=== PATIENT | male | born 1985 | race Caucasian/White ===

== ENCOUNTER 2017-08-09 07:10 | Emergency (ER) | payer MEDICAID, SELFPAY ==
[2017-08-09 07:11] VITALS: BP 135/67; PULSE 80; RESP 18; TEMP 36.4; O2SAT 99; BMI 25.0
--- NOTE | 2017-08-09 07:36 | CT_ITS ---
STUDY: CT BRAIN WITHOUT CONTRAST REASON FOR EXAM: Male, 32 years old. Confusion. RADIATION DOSAGE (If Supplied By Facility): CTDIvol = ( 44.99 ) mGy, DLP = ( 796.11 ) mGycm TECHNIQUE: Transaxial CT imaging of the brain was performed without administration of intravenous contrast material. Individualized dose optimization techniques were used for this CT. COMPARISON: Comparison is made with prior study dated September 18, 2004. FINDINGS: Normal soft tissue structures. Normal calvarium. Normal size ventricles and extra-axial spaces for the patient's age. Normal white matter tracts of the cerebral hemispheres. Normal basal ganglia and thalami. Normal brainstem. Normal cerebellum. There is no intracranial hemorrhage. There are no findings of an acute ischemic infarction. Normal visualized paranasal sinuses. Nasal septal deviation towards the left side of the midline. CT/Brain/Head without Contrast IMPRESSION: Normal unenhanced CT scan of the brain. Electronically Signed: Joseph Hubbard MD at 8:38 EDT Tel [phone], Service support ,
[2017-08-09 08:02] LABS: Absolute Neutrophil Count 5.8 X10^3/uL (2.0-7.7); Basophil# 0.04 X10^3/uL; Basophil% 0.4 % (0-1); Eosinophil# 0.49 X10^3/uL; Eosinophils% 5.4 % (0-5); Hemoglobin 14.1 g/dl (13.0-16.5); Lymphocyte % 21.9 % (19-41); Mean Corp Hgb Conc 35.3 g/gl (32-36); Mean Corpuscular Hgb 31.8 pg (27.0-32.0); Mean Corpuscular Volume 90.3 fL (80-94); Mean Platelet Vol. 9.6 fl (6.2-12.0); Monocyte# 0.84 X10^3/uL; Monocyte% 9.2 % (0-10); Neutrophil # 5.76 X10^3/uL (2.7-7.7); Neutrophil % 62.9 % (47-70); POSITIVE COUNT NO; POSITIVE DIFFERENTIAL NO; POSITIVE MORPHOLOGY NO; Platelet Count 252 K/mm3 (150-450); RBC Distribution Width CV 12.8 % (11.6-14.6); RBC Distribution Width SD 41.8 fl (35.1-43.9); Red Blood Count 4.43 M/mm3 (4.6-6.2); White Blood Count 9.2 K/mm3 (4.4-11.0)
--- OUTSIDE RECORDS SUMMARY | 2017-08-09 08:13 | XMS RPT_ITS ---
:1985 Author Organization OHIP Care Team Providers Name Role Phone DR. ITA DURANT DO Attending Unavailable PHYSICIAN, NONE Primary Care Unavailable BEA PUGH) Attending Unavailable BEA PUGH) Referring Unavailable BEA PUGH) Attending Unavailable Clint Wagner Attending Unavailable Vamsi Pinto Primary Care Unavailable PROBLEMS PROBLEMS DATE TYPE CONDITION / CODE ATTENDING STATUS SOURCE 09/15/2016 Active Attention-deficit NA Active [facility] [place] disorder, combined Repository type / F90.2(ICD-10) PROCEDURES PROCEDURES No Procedure Records FoundRESULTS RESULTS CBC W/DIFF, AUTOMATED Collected: 08/09/2017 Status: F Source: [place] 7:52 AM [facility] REPOSITORY TYPE CODE TESTS RESULT OUT OF RANGE REFERENCE UNITS LAB L100.1000 Normal 4.4-11.0 K/mm3 WBC 9.2 LAB L100.1200 Low 4.6-6.2 M/mm3 RBC 4.43 LAB L100.1300 Normal 13.0-16.5 g/dl HGB 14.1 LAB L100.1400 Normal 40-54 % HCT 40.0 LAB L100.1500 Normal 80-94 fL MCV 90.3 LAB L100.1600 Normal 27.0-32.0 pg MCH 31.8 LAB L100.1700 Normal 32-36 g/gl MCHC 35.3 LAB L100.1810 Normal 11.6-14.6 % RDW 12.8 CV LAB L100.1820 Normal 35.1-43.9 fl RDW 41.8 SD LAB L100.1900 Normal 150-450 K/mm3 PLT 252 LAB L100.2000 Normal 6.2-12.0 fl MPV 9.6 LAB L100.2100 Normal 47-70 % NEUT% 62.9 LAB L100.2200 Normal 19-41 % LY% 21.9 LAB L100.2300 Normal 0-10 % MONO% 9.2 LAB L100.2400 High 0-5 % EO% 5.4 LAB L100.2500 Normal 0-1 % BASO% 0.4 LAB L100.2550 Normal 0.0-0.9 % IM 0.200 GRAN % Result Comment: IG% - Immature Granulocytes (promyelocytes, myelocytes andmetamyelocytes) > 1% indicates that a LEFT SHIFT is Present. LAB L100.2620 Normal 2.0-7.7 X10 3/uL Absolute Neut 5.8 LAB L100.2720 Normal 0.83-4.51 X10 3/ul Absolute Lymph 2.00 Performed By: #### L100.0100 ####[facility] [id number] [place], [place], [address] PROGRESS Observed: 06/02/2017 Status: COMPLETED Source: [place] 4:57 PM [facility] REPOSITORY HNO ID: [id number]: Bea Messer) Aroldo : (none)Author Type: PhysicianType: Progress NotesFiled: 06/03/2017 7:40 AMNote Text:Chief ComplaintPatient presents with:Refill Request: depressionRodney Mckeon is a 31 year old male who presents here today for AboveComplaints..Patient states that he has been off of his Zoloft for the last few monthsbecause he ran out of refills. States that he was taking it after lastvisit in August and felt that it worked well for his depression symptomswithout side effects. Since he has been off of the medication: feelsdown/depressed, decreased energy/interest, decreased concentration,feeling guilty. Has normal appetite, normal sleep. Denies psychomotorsymptoms or suicidal thoughts. Would like refill of his Zoloft.Patient currently homeless and is living at the [facility] here [facility]. [place] [employer] [facility] [place] the [place] free to get [facility].Admits to continued marijuana use, but denies other illicit drug use. Saysprevious oxycodone is likely due to marijuana use that was laced with thedrug.Past medical history, appointments, medications, allergies reviewed.Previous Medical HistoryPAST MEDICAL HISTORYDiagnosis Date- ADHD (attention deficit hyperactivity disorder) 1989- Drug abuse oxycodone found on urine drug screen 09/2016- History of alcoholism (HCC) 2011 DUI, sober since 2012- Marijuana use- Tobacco usePrevious Surgical HistoryPAST SURGICAL HISTORYProcedure Laterality Date- ORAL SURGERY PROCEDURE wisdom teeth extractionFamily HistoryFAMILY HISTORYProblem Relation Age of Onset- Psychiatry Mother ADHD- Peripheral Artery Disease Mother- Breast Cancer Maternal AuntPatient AllergiesALLERGIESAllergen Reactions- Cats Other: See Comments Itchy eyes AND hives if touching catCurrent MedicationsCurrent Outpatient Prescriptions on File Prior to Visit:multivitamin tablet Take 1 tablet by mouth once daily.sertraline (ZOLOFT) 50 mg tablet Take 1 tablet by mouth once daily.No current facility-administered medications on file prior to visit.Social HistorySocial History Marital status: Single Spouse name: Years of education: Number of children:Social History Main Topics Smoking status: Current Every Day Smoker Packs/day: 1.00 Years: 15.00 Smokeless status: Former User Types: Chew Quit date: 09/15/2014 Alcohol use: No Drug use: Yes Special: Marijuana Comment: Last use May 2016 Sexual activity: Not CurrentlyReview of SymptomsREVIEW OF SYSTEMSe HPIEXAM:BP 148/96 Pulse 84 Resp 12 Wt 93.4 kg (206 lb) BMI 26.81 kg/l7DQNHC: Posture and motor behavior: normal posture and motor behavior Dress, grooming, personal hygiene: normal dress and grooming Facial expression: good eye contact Speech: normal speech Mood: sad Coherency and relevance of thought: normal thought processes Memory: normal memoryHealth Maintenance ListTETANUS due on 07/23/1994INFLUENZA(Season Ended) due on 10/21/2017ONE PNEUMOVAX PRIOR TO AGE 63 CompletedASSESSMENT/PLAN:1. Moderate episode of recurrent major depressive disorder (HCC) - ICD9:296.32, ICD10: F33.1Will restart SSRI and have patient follow up in 2-3 months. To call ifsymptoms not improving on low dose in 4-6 weeks and will increase.- SERTRALINE 50 MG TABLET2. Marijuana use - ICD9: 305.20, ICD10: F12.90Discussed risks of continued use and recommended cessation.Bea Pugh MD CNOV Observed: 06/02/2017 Status: COMPLETED Source: [place] 4:20 PM [facility] REPOSITORY Office Visit (FAMPWS) ---------RIKI MCKEON ([id number]) 1985 [facility] Time Provider Department06/02/17 4:20 PM BEA PUGH) FAMPWS During your visit today, we recorded the following information about you: Pulse Respiration Blood pressure Weight 84/minute 12/minute 138/88 93.4 kgChristopher Lashanda Pugh MD 06/03/2017 7:40 AM SignedChief ComplaintPatient presents with:Refill Request : depressionHPIJselwynua Lashell Mckeon is a 31 year old male who presents here today for AboveComplaints..Patient states that he has been off of his Zoloft for the last few monthsbecause he ran out of refills. States that he was taking it after last visit inJuly and felt that it worked well for his depression symptoms without sideeffects. Since he has been off of the medication: feels down/depressed, decreased energy/interest, decreased concentration, feeling guilty. Has normalappetite, normal sleep. Denies psychomotor symptoms or suicidal thoughts. Wouldlike refill of his Zoloft.Patient currently homeless and is living at the [facility] here in [place] [facility] [place] to [place] to appointments.Admits to continued marijuana use, but denies other illicit drug use. Saysprevious oxycodone is likely due to marijuana use that was laced with the drug.Past medical history, appointments, medications, allergies reviewed.Previous Medical HistoryPAST MEDICAL HISTORYDiagnosis Date- ADHD (attention deficit hyperactivity disorder) 1989- Drug abuse oxycodone found on urine drug screen 09/2016- History of alcoholism (HCC) 2011 DUI, sober since 2012- Marijuana use- Tobacco usePrevious Surgical HistoryPAST SURGICAL HISTORYProcedure Laterality Date- ORAL SURGERY PROCEDURE wisdom teeth extractionFamily HistoryFAMILY HISTORYProblem Relation Age of Onset- Psychiatry Mother ADHD- Peripheral Artery Disease Mother- Breast Cancer Maternal AuntPatient AllergiesALLERGIESAllergen Reactions- Cats Other: See Comments Itchy eyes ANDamp; hives if touching catCurrent MedicationsCurrent Outpatient Prescriptions on File Prior to Visit: multivitamin tablet Take 1 tablet by mouth once daily.sertraline (ZOLOFT) 50 mg tablet Take 1 tablet by mouth once daily.No current facility-administered medications on file prior to visit.Social HistorySocial History Marital status: Single Spouse name: Years of education: Number of children:Social History Main Topics Smoking status: Current Every Day Smoker Packs/day: 1.00 Years: 15.00 Smokeless status: Former User Types: Chew Quit date: 09/15/2014 Alcohol use: No Drug use: Yes Special: Marijuana Comment: Last use May 2016 Sexual activity: Not CurrentlyReview of SymptomsREVIEW OF SYSTEMSSee HPIEXAM:BP 148/96 Pulse 84 Resp 12 Wt 93.4 kg (206 lb) BMI 26.81 kg/a9GPHZR: Posture and motor behavior: normal posture and motor behavior Dress, grooming, personal hygiene: normal dress and grooming Facial expression: good eye contact Speech: normal speech Mood: sad Coherency and relevance of thought: normal thought processes Memory: normal memoryHealth Maintenance ListTETANUS due on 07/23/1994INFLUENZA(Season Ended) due on 10/21/2017ONE PNEUMOVAX PRIOR TO AGE 63 CompletedASSESSMENT/PLAN:1. Moderate episode of recurrent major depressive disorder (HCC) - ICD9:296.32, ICD10: F33.1Will restart SSRI and have patient follow up in 2-3 months. To call if symptomsnot improving on low dose in 4-6 weeks and will increase.- SERTRALINE 50 MG TABLET2. Marijuana use - ICD9: 305.20, ICD10: F12.90Discussed risks of continued use and recommended cessation.Janna Denny Provider: SELF [200]Allergies As of Date: 06/02/2017 Noted Allergy ReactionCATS 03/04/2013 14 - Other: See Comments Comments: Itchy eyes AND hives if touching catDate Reviewed: 2016Reviewed by: Bea Messer) Jaquelin - Fully AssessedReason for Visit: Refill Request [94] Cmt: depressionVisit Diagnoses:Moderate episode of recurrent major depressive disorder (HCC) [F33.1] Marijuana use [F12.90]Order(s):sertraline (ZOLOFT) 50 mg tabletTake 1 tablet by mouth once daily.Disp: 30 tabletRfl: 3Prescriptions as of 06/02/2017 Sig: FLAXSEED OIL MULTIVITAMIN TABLET Take 1 tablet by mouth once d* SERTRALINE 50 MG TABLET Take 1 tablet by mouth once d*Problem List As Of Date: 06/02/2017(None)Prescriptions ordered this encounter Disp Refills Start End SERTRALINE 50 MG TABLET 30 t* 3 06/02/2017 Route: ORAL Sig: Take 1 tablet by mouth once daily.Medications Discontinued During This Encounter sertraline (ZOLOFT) 50 mg tablet 30 t* 3 09/15/2016 06/02/2017 Route: ORAL Sig: Take 1 tablet by mouth once daily. Disc: Reason for discontinue is not on file.Disposition: Return in about 3 months (around 09/01/2017).Follow-up and Disposition History Recorded ---------Questionnaire: RA-7 ANXIETY SCALEFeeling nervous, anxious, or on edge -> 2 Over half the daysNot being able to stop or control worrying -> 2 Over half the daysWorrying too much about different things -> 2 Over half the daysTrouble relaxing -> 3 Nearly every dayBeing so restless that it's hard to sit still -> 0 Not at all sureBeing easily annoyed or irritable -> 2 Over half the daysFeeling afraid as if something awful might happen -> 0 Not at all sureGAD-7 Anxiety Score -> 11If you checked off any problems, how difficult have these problems made it foryou to do your work, take care of things at home, or get along with otherpeople? -> Somewhat difficultEncounter Number: [id number] Status:Closed by BEA PUGH MD on 06/03/17 TOXICOLOGY SCREEN,UR Collected: 09/15/2016 Status: F Source: [place] 9:39 AM [facility] REPOSITORY TYPE CODE TESTS RESULT OUT OF REFERENCE UNITS RANGE LAB UPCP2 Negative Negative Phencyclidin e, Urine Result Comment: Cutoff threshold at 25 ng/mL.Cross reactivity with other substances can occur with immunoassay screening. In house validation testing showed 80% of preliminary positive samples were confirmed by mass spectrometry (high specificity, quantitative) testing. Greater than 99% of negative screen results were confirmed by mass spectrometry (high specificity, quantitative) testing. LAB UBENZ2 Negative Benzodiazepines, Ur Negative Result Comment: Cutoff threshold at 200 ng/mL.Cross reactivity with other substances can occur with immunoassay screening. In house validation testing showed 90% of preliminary positive samples were confirmed by mass spectrometry (high specificity, quantitative) testing. 80% of negative screen results were confirmed by mass spectrometry (high specificity, quantitative) testing. LAB UCOC2 Negative Cocaine, Negative Urine Result Comment: Cutoff threshold at 300 ng/mL.Cross reactivity with other substances can occur with immunoassay screening. In house validation testing showed greater than 99% of preliminary positive samples were confirmed by mass spectrometry (high specificity, quantitative) testing. Greater than 99% of negative screen results were confirmed by mass spectrometry (high specificity, quantitative) testing. LAB UAMPH2 Negative Amphetamines, Urine Negative Result Comment: Cutoff threshold at 1000 ng/mL.Cross reactivity with other substances can occur with immunoassay screening. In house validation testing showed 70% of preliminary positive samples were confirmed by mass spectrometry (high specificity, quantitative) testing. Greater than 99% of negative screen results were confirmed by mass spectrometry (high specificity, quantitative) testing. LAB UTHC2 Negative Cannabinoids, Urine Negative Result Comment: Cutoff threshold at 50 ng/mL.Cross reactivity with other substances can occur wtih immunoassay screening. In house validation testing showed 80% of preliminary positive samples were confirmed by mass spectrometry (high specificity, quantitative) testing. Greater than 99% of negative screen results were confirmed by mass spectrometry (high specificity, quantitative) testing. LAB UOPI2 Negative Opiates, Negative Urine Result Comment: Cutoff threshold at 300 ng/mL.Cross reactivity with other substances can occur wtih immunoassay screening. In house validation testing showed greater than 99% of preliminary positive samples were confirmed by mass spectrometry (high specificity, quantitative) testing. 90% of negative screen results were confirmed by mass spectrometry (high specificity, quantitative) testing. LAB UBARB2 Negative Barbiturates, Urine Negative Result Comment: Cutoff threshold at 200 ng/mL.Cross reactivity with other substances can occur with immunoassay screening. In house validation testing showed greater than 99% of preliminary positive samples were confirmed by mass spectrometry (high specificity, quantitative) testing. Greater than 99% of negative screen results were confirmed by mass spectrometry (high specificity, quantitative) testing. LAB UETOH <11 mg/dL <11 Ethanol, Urine LAB UOXYC Abnormal Negative Preliminary Alert Oxycodone, positive. Urine Result Comment: Cutoff threshold at 100 ng/mL.Cross reactivity with other substances can occur with immunoassay screening. In house validation testing showed greater than 99% of preliminary positive samples were confirmed by mass spectrometry (high specificity, quantitative) testing. Greater than 99% of negative screen results were confirmed by mass spectrometry (high specificity, quantitative) testing.Comment:Immunoassay screen only. Detection of any drug(s ) in this urine toxicology panel is presumptive only. Intended use is for evaluation of suspected acute overdose. These tests are for medical purposes only and should not be used for compliance monitoring, legal, or forensic use.If clinically indicated, confirmation by high specificity, quantitative methodology may be requested on the same specimen through Client Services ([phone]) if contacted within 48 hours of initial testing.These tests were developed and their performance characteristics determined by [facility]'s [facility] ( [facility]). They have not been cleared or approved by the FDA. [facility] is regulated under CLIA as qualified to perform high complexity testing.These tests are used for clinical purposes. They should not be regarded as investigational or for research. Performed By: #### UTOX2 ####[facility], [place] [phone] QUANT PAIN PANEL, Collected: 09/15/2016 Status: F Source: [place] UR 9:[address] [facility] REPOSITORY TYPE CODE TESTS RESULT OUT OF REFERENCE UNITS RANGE LAB UQCANN High <16 ng/mL 23 Cannabinoid, Urine Result Comment: Tetrahydrocannabinol carboxylic acid (THCA ) is a metabolite of vjehq-8-wcdttfcxvmiqiqqkvypx which is the main active component of marijuana. Presence of THCA indicates use of marijuana. LAB UQBNZL <24 ng/mL Benzoylecognine, Ur <24 Result Comment: Benzoylecognine is a metabolite of cocaine. LAB UQACMR <5 ng/mL 6-Acetylmorphine, Ur <5 Result Comment: 6-MACARENA (6-monoacetylmorphine, also known as 6-acetylmorphine) is a unique metabolite of heroin. Presence of 6-MACARENA indicates use of heroin. 6-MACARENA is further metabolized to morphine and absence of 6-MACARENA does not rule out the use of heroin. LAB UQAMPH <5 ng/mL Amphetamine, Urine <5 LAB UQMAMP <8 ng/mL Methamphetamine, Ur <8 LAB UQBUPR <20 ng/mL Buprenorphine, Ur <20 LAB UQNBUP <20 ng/mL Norbuprenorphine, Ur <20 Result Comment: Norbuprenorphine is the primary active metabolite of buprenorphine. LAB UQMTHD <16 ng/mL Methadone, <16 Urine LAB UQEDDP <6 ng/mL EDDP, Urine <6 Result Comment: EDDP is a metabolite of methadone. LAB UQTRAM <25 ng/mL Tramadol, <25 Urine LAB UQDTRM <20 ng/mL <20 Desmethyltramado l,Ur Result Comment: Desmethyltramadol is a metabolite of tramadol. LAB UQFNTL <6 ng/mL Fentanyl, Urine <6 LAB UQNFTL <6 ng/mL Norfentanyl, <6 Urine Result Comment: Norfentanyl is a metabolite of fentanyl. LAB UQCODE <11 ng/mL Codeine, <11 Urine LAB UQMORP <10 ng/mL Morphine, <10 Urine Result Comment: Morphine is a metabolite of codeine and heroin. LAB UQDCDN <5 ng/mL Dihydrocodeine, Ur <5 LAB UQHCOD <8 ng/mL Hydrocodone, Urine <8 Result Comment: Hydrocodone is a metabolite of dihydrocodeine. LAB UQOXYC High <5 ng/mL Oxycodone, Urine 1015 Result Comment: Oxycodone is not a recognized metabolite of other opiates and its presence indicates use of an oxycodone containing drug. Oxycodone is metabolized to oxymorphone. LAB UQHMOR <5 ng/mL Hydromorphone, Ur <5 Result Comment: Hydromorphone is a metabolite of hydrocodone. LAB UQOXYM High <5 ng/mL Oxymorphone, Urine 635 Result Comment: Oxymorphone may arise from oxymorphone containing drugs or by metabolism os oxycodone. LAB UQCREA >19 mg/dL Creatinine, >50 Urine LAB UQPH 4-10 pH, Urine 4-10 LAB UQSPGR 1.005-1.020 Specific 1.005-1.020 Alpine,Ur LAB UQOXID Negative Oxidants, Urine Negative LAB UQSPQ Specimen Specimen Quality quality results within acceptable limits. LAB UQNOTE Note This test is for Medical use only. Result Comment: This test was developed and its performance characteristics determined by [facility]'s [facility] [place] ([facility]).It has not been cleared or approved by the FDA. -[facility] is regulated under CLIA as qualified to perform high-complexity testing.This test is used for clinical purposes. It should not be regarded as investigational or for research. Performed By: #### UQNTPP ####[place] [id number], [place] [phone] PROGRESS Observed: 09/15/2016 Status: COMPLETED Source: [place] 8:[address] [facility] [place] REPOSITORY [facility] ID: [id number]: Bea Messer) Aroldo : (none)Author Type: PhysicianType: Progress NotesFiled: 09/15/2016 9:38 AMNote Text:Chief ComplaintPatient presents with:Paxton Kckurt Mckeon is a 31 year old male who presents here today [facility]. 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 Finally came in because he is tired of feeling down/depressed.Has had trouble holding down a job. Denies history of suicide attempt. Hasbeen treated when he was a teenager with counseling, but no SSRI or SNRImedications. Not seeing counselor at this time.Attributes his depression symptoms to his ADHD. States that he has noimpulse control, trouble paying attention when spoken to, troublesleeping, fidgeting, trouble concentration, trouble with organization,forgetfulness. Has been on ritalin in the past, 20mg daily. Has not beenon medication in the last 20 years. Feels like he has lost ability to holddown a job and with depression symptoms above he felt like he needed somehelp.Patient Health Questionnaire (PHQ-9), interviewer reported, Score: 13? ?- Individual responses : 3-8-3-3-0-0-1-3-0? Question and Answer List:? 1. More than half the days (2) ?- Little interest or pleasure in doingthings? 2. More than half the days (2) ?- Feeling down, depressed, or hopeless? 3. More than half the days (2) ?- Trouble falling or staying asleep, orsleeping too much? 4. Nearly every day (3) ?- Feeling tired or having little energy? 5. Not at all (0) ?- Poor appetite or overeating? 6. Not at all (0) ?- Feeling bad about yourself - or that you are afailure or have let yourself or your family down? 7. Several days (1) ?- Trouble concentrating on things, such as readingthe newspaper or watching television? 8. Nearly every day (3) ?- Moving or speaking so slowly that otherpeople could have noticed. Or the opposite - being so fidgety or restlessthat you have been moving around a lot more than usual? 9. Not at all (0) ?- Thoughts that you would be better off , or ofhurting yourself in some way? 10. Very difficult (0) ?- If you checked off any problems in theprevious 9 questions, how difficult have these problems made it for you todo your work, take care of things at home, or get along with other people?Patient admits to history of alcoholism with DUI. Sober for 4 years.Smokes 1/2-1 pack of cigarettes per day and does not want help withcessation at this time. Has history of marijuana use, but states has been3 months since last use.Past medical history, appointments, medications, allergies reviewed.Previous Medical HistoryPAST MEDICAL HISTORYDiagnosis Date- ADHD (attention deficit hyperactivity disorder) 1989- History of alcoholism (HCC) 2011 DUI, sober since 2012- Tobacco usePrevious Surgical HistoryPAST SURGICAL HISTORYNo date: ORAL SURGERY PROCEDURE Comment: wisdom teeth extractionFamily HistoryFAMILY HISTORY Psychiatry Mother Comment: ADHD Peripheral Artery Disease Mother Breast Cancer Maternal AuntPatient AllergiesALLERGIESAllergen Reactions - Cats Other: See Comments Itchy eyes AND hives if touching catCurrent MedicationsCurrent Outpatient Prescriptions on File Prior to Visit:LORazepam ( ATIVAN) 0.5 mg tab Take 1 tablet by mouth twice daily as needed(anxiety). (Patient not taking: Reported on 09/15/2016)No current facility-administered medications on file prior to visit.Social HistorySocial History Marital status: Single Spouse name: Years of education: Number of children:Social History Main Topics Smoking status: Current Every Day Smoker Packs/day: 1.00 Years: 15.00 Smokeless status: Former User Types: Chew Quit date: 09/15/2014 Alcohol use: No Drug use: Yes Special: Marijuana Comment: Last use May 2016 Sexual activity: Not CurrentlyReview of SymptomsREVIEW OF SYSTEMSGENERAL : No weight loss, malaise or feversRESPIRATORY: Negative for cough, hemoptysis, wheezing, COPD, dyspnea orshortness of breathCARDIOVASCULAR: Negative for chest pain, leg swelling, hypertension, CHFor palpitationsGI: No nausea, vomiting, or diarrheaSKIN: Negative for lesions, rash, and itchingEXAM:BP 156/98 Pulse 88 Resp 16 Ht 186.7 cm (6' 1.5) Wt 97.1 kg (214lb) BMI 27.85 kg/y1Zijudil Appearance: Well appearing, alert, in no acute distress,well-hydrated, well nourished..Skin: Skin color, texture, turgor normal, no suspicious rashes or lesions.Lungs: Lungs clear to auscultation. No wheezing, rhonchi, rales.Heart: RRR without murmur, gallop, or rubs. No ectopy.Abdomen: Normal abdominal exam, Abdomen soft, non-tender. Bowel soundsnormal. No masses, organomegaly.Extremities: No deformities, edema, skin discoloration, clubbing orcyanosis. Good capillary refill. .Health Maintenance ListTETANUS due on 07/23/1994ONE PNEUMOVAX PRIOR TO AGE 63 due on 07/23/2002INFLUENZA(1) due on 10/21/2016ASSESSMENT/PLAN:1. Moderate episode of recurrent major depressive disorder (HCC) - ICD9:296.32, ICD10: F33.1 (primary diagnosis)Will start treatment with SSRI and recheck in 2 months. Obtain labs torule out underlying causes.- CBC- COMP METABOLIC PANEL- VITAMIN B12 BLOOD- SERTRALINE 50 MG TABLET2. ADHD (attention deficit hyperactivity disorder), combined type - ICD9:314.01, ICD10: F90.2Will obtain urine drug screening and have patient fill out controlledsubstance agreement as first line treatment for ADHD is stimulantmedications. Will call with results. Consider adderall XR for initialtreatment.- TOX SCREEN ROUT UR- PAIN PANEL, UR QUANT- TSH BLD3. Encounter for screening for lipid disorder - ICD9: V77.91, ICD10:Z13.220- LIPID PANEL BASIC4. Need for vaccination - ICD9: V05.9, ICD10: Z23- PNEUMOCOCCAL IMMUNIZATION PPSV 23Christopher Lashanda Pugh MD CNOV Observed: 09/15/2016 Status: COMPLETED Source: [place] [address]:20 AM [facility] REPOSITORY Office Visit (FAMPWS) ---------RIKI MCKEON ([id number]) 1985 [facility] Time Provider Department09/15/16 8:20 AM BEA PUGH) FAMPWS During your visit today, we recorded the following information about you: Pulse Respiration Blood pressure Weight 88/minute 16/minute 134/86 97.1 kg Height 1.867 [facility] Lashanda Puhg MD 09/15/2016 9:38 AM [facility] ComplaintPatient presents with:Establish [facility] Hospital[facility]рей Lobo Hanna is a 31 year old male who presents here today for [facility] visit. Patient states that he has not been seen by physician since he leftthe [employer].Patient complains of depression symptoms which have been present for about 20years. Finally came in because he is tired of feeling down/depressed. Has hadtrouble holding down a job. Denies history of suicide attempt. Has been treatedwhen he was a teenager with counseling, but no SSRI or SNRI medications. Notseeing counselor at this time.Attributes his depression symptoms to his ADHD. States that he has no impulsecontrol, trouble paying attention when spoken to, trouble sleeping, fidgeting,trouble concentration, trouble with organization, forgetfulness. Has been onritalin in the past, 20mg daily. Has not been on medication in the last 20years. Feels like he has lost ability to hold down a job and with depressionsymptoms above he felt like he needed some help.Patient Health Questionnaire (PHQ-9), interviewer reported, Score: 13? ?- Individual responses : 4-8-3-3-0-0-1-3-0? Question and Answer List:? 1. More than half the days (2) ?- Little interest or pleasure in doing things? 2. More than half the days (2) ?- Feeling down, depressed, or hopeless ? 3. More than half the days (2) ?- Trouble falling or staying asleep, orsleeping too much? 4. Nearly every day (3) ?- Feeling tired or having little energy? 5. Not at all (0) ?- Poor appetite or overeating ? 6. Not at all (0) ?- Feeling bad about yourself - or that you are a failureor have let yourself or your family down? 7. Several days (1) ?- Trouble concentrating on things, such as reading thenPureSensepaper or watching television? 8. Nearly every day (3) ?- Moving or speaking so slowly that other peoplecould have noticed. Or the opposite - being so fidgety or restless that youhave been moving around a lot more than usual? 9. Not at all (0) ?- Thoughts that you would be better off , or ofhurting yourself in some way? 10. Very difficult (0) ?- If you checked off any problems in the previous 9questions, how difficult have these problems made it for you to do your work,take care of things at home, or get along with other people?Patient admits to history of alcoholism with DUI. Sober for 4 years. Smokes1/2-1 pack of cigarettes per day and does not want help with cessation at thistime. Has history of marijuana use, but states has been 3 months since lastuse.Past medical history, appointments, medications, allergies reviewed.Previous Medical HistoryPAST MEDICAL HISTORYDiagnosis Date- ADHD ( attention deficit hyperactivity disorder) 1989- History of alcoholism (HCC) 2011 DUI, sober since 2012- Tobacco usePrevious Surgical HistoryPAST SURGICAL HISTORYNo date: ORAL SURGERY PROCEDURE Comment: wisdom teeth extractionFamily HistoryFAMILY HISTORY Psychiatry Mother Comment: ADHD Peripheral Artery Disease Mother Breast Cancer Maternal AuntPatient AllergiesALLERGIESAllergen Reactions - Cats Other: See Comments Itchy eyes ANDamp; hives if touching catCurrent MedicationsCurrent Outpatient Prescriptions on File Prior to Visit:LORazepam (ATIVAN) 0.5 mg tab Take 1 tablet by mouth twice daily as needed(anxiety). (Patient not taking: Reported on 09/15/2016)No current facility-administered medications on file prior to visit.Social HistorySocial History Marital status : Single Spouse name: Years of education: Number of children:Social History Main Topics Smoking status: Current Every Day Smoker Packs/day: 1.00 Years: 15.00 Smokeless status: Former User Types: Chew Quit date: 09/15/2014 Alcohol use: No Drug use : Yes Special: Marijuana Comment: Last use May 2016 Sexual activity: Not CurrentlyReview of SymptomsREVIEW OF SYSTEMSGENERAL: No weight loss, malaise or feversRESPIRATORY: Negative for cough, hemoptysis, wheezing, COPD, dyspnea orshortness of breathCARDIOVASCULAR: Negative for chest pain, leg swelling, hypertension, CHF orpalpitationsGI: No nausea, vomiting, or diarrheaSKIN: Negative for lesions, rash, and itchingEXAM:BP 156/98 Pulse 88 Resp 16 Ht 186.7 cm (6' 1.5ANDquot;) Wt 97.1 kg (214lb) BMI 27.85 kg/t9Lzimzhv Appearance: Well appearing, alert, in no acute distress, well-hydrated,well nourished..Skin: Skin color, texture, turgor normal, no suspicious rashes or lesions.Lungs: Lungs clear to auscultation. No wheezing, rhonchi, rales.Heart: RRR without murmur, gallop , or rubs. No ectopy.Abdomen: Normal abdominal exam, Abdomen soft, non-tender. Bowel sounds normal.No masses, organomegaly.Extremities: No deformities, edema, skin discoloration, clubbing or cyanosis.Good capillary refill. .Health Maintenance ListTETANUS due on 07/23/1994ONE PNEUMOVAX PRIOR TO AGE 65 due on 07/23/2002INFLUENZA(1) due on 10/21/2016ASSESSMENT/PLAN:1. Moderate episode of recurrent major depressive disorder (HCC) - ICD9:296.32, ICD10: F33.1 (primary diagnosis)Will start treatment with SSRI and recheck in 2 months. Obtain labs to rule outunderlying causes.- CBC- COMP METABOLIC PANEL- VITAMIN B12 BLOOD- SERTRALINE 50 MG TABLET2. ADHD (attention deficit hyperactivity disorder), combined type - ICD9:314.01, ICD10: F90.2Will obtain urine drug screening and have patient fill out controlled substanceagreement as first line treatment for ADHD is stimulant medications. Will callwith results. Consider adderall XR for initial treatment.- TOX SCREEN ROUT UR- PAIN PANEL, UR QUANT- TSH BLD3. Encounter for screening for lipid disorder - ICD9: V77.91, ICD10: Z13.220- LIPID PANEL BASIC4. Need for vaccination - ICD9: V05.9, ICD10: Z23- PNEUMOCOCCAL IMMUNIZATION PPSV 23ChristopJanna Morales Provider: SELF [200]Allergies As of Date: 09/15/2016 Noted Allergy ReactionCATS 03/04/2013 14 - Other: See Comments Comments: Itchy eyes AND hives if touching catDate Reviewed: 09/15/2016Reviewed by: Bea Messer) Jaquelin - Fully AssessedReason for Visit: [facility] [42]Primary Visit Diagnosis:Moderate episode of recurrent major depressive disorder (HCC) [F33.1] Other Visit Diagnoses:ADHD ( attention deficit hyperactivity disorder), combined type [F90.2] Encounter for screening for lipid disorder [Z13.220] Need for vaccination [Z23]Order(s):PNEUMOCOCCAL IMMUNIZATION PPSV 23 [22585SCJ] Order #: [id number] TOX SCREEN ROUT UR [SQUTOX2] Order #: [id number] FUTURE PAIN PANEL, UR QUANT [SQUQNTPP ] Order #: [id number]. #:[id number] CBC [SQCBC] Order # : [id number] FUTURE COMP METABOLIC PANEL [SQCMP] Order #: [id number] FUTURE LIPID PANEL BASIC [SQLIPB] Order #: [id number] FUTURE TSH BLD [SQTSH] Order #: [id number] FUTURE VITAMIN B12 BLOOD [SQB12] Order #: [id number] FUTURE sertraline (ZOLOFT) 50 mg tabletTake 1 tablet by mouth once daily.Disp: 30 tabletRfl: 3Prescriptions as of 09/15/2016 Sig: MULTIVITAMIN TABLET Take 1 tablet by mouth once d* SERTRALINE 50 MG TABLET Take 1 tablet by mouth once d*Problem List As Of Date: 09/15/2016(None)Prescriptions ordered this encounter Disp Refills Start End SERTRALINE 50 MG TABLET 30 t* 3 09/15/2016 Route: ORAL Sig: Take 1 tablet by mouth once daily.Medications Discontinued During This Encounter LORazepam ( ATIVAN) 0.5 mg tab 10 t* 0 07/03/2014 09/15/2016 Class: Print RX Route: ORAL Sig: Take 1 tablet by mouth twice daily as needed (anxiety). Patient not taking: Reported on 2016 Disc: Reason for discontinue is not on file.Disposition: Return in about 2 months (around 11/16/2016).Follow-up and Disposition History Recorded ---------Questionnaire: PHQ-9THE LAST 2 WEEKS, HAVE YOU BEEN BOTHERED BY ANY OF THE FOLLOWING? -> - Little interest or pleasure in doing things -> 3 NEARLY EVERY DAYFeeling down, depressed, or hopeless -> 3Trouble falling or staying asleep, or sleeping too much -> 3Feeling tired or having little energy -> 2Poor appetite or overeating -> 0Feeling bad yourself-you are a failure or have let yourself or others -> 3Trouble concentrating, like reading the paper or watching TV -& gt; 3Moving/speaking slowly (others notice) OR being more fidgety/restless -> 3Thoughts that you would be better off or of hurting yourself -> 0PHQ TOTAL SCORE = -> 20PHQ problems effect on difficulty of work, home, and social activity: -> 4 - EXTREMELY DIFFICULTLetter TextWooster Family Health and Surgery CenterControlled Substance AgreementPurposeThe purpose of this agreement is to prevent misunderstandings about certainmedicines you will be taking for pain management. It will help both you andyour doctor to comply with laws regarding controlled pharmaceuticals. Iunderstand that this agreement is essential to the trust and confidencenecessary in a doctor/patient relationship and that my doctor undertakes totreat me based on this agreement.AGREEMENTI, Rikikurt Mckeon, understand that if I break this agreement , my doctor willstop prescribing these pain-control medicines. In this case, my doctor willtaper off the medicine over a period of several days, as necessary, to avoidwithdrawal symptoms. A drug- dependence treatment program may be recommended.In certain cases, you may be terminated as a patient. I will communicate fully with my doctor about the character and intensity ofmy pain, its effect on my daily life, and how well the medicine is helping torelieve the pain.I will not use any illegal controlled substances, including marijuana,cocaine, etc. Random urine and/or serum toxicology screens may be requested;this testing may be unannounced and occur at any time.I agree that I will submit to a blood or urine test if requested by my doctorto determine my compliance with my program of pain control medicine.I will not share, sell or trade my medication with anyone.I will not attempt to obtain any controlled substance from any other doctor,other than a covering physician. I will safeguard my pain medicine from loss or theft. Lost or stolenmedicines may not be replaced.I agree that refills of my prescriptions for pain medicine will be made onlyat the time of an office visit or during regular office hours. No refillswill be available on evenings or weekends.I authorize the doctor and my pharmacy to cooperate fully with any city,state or federal law enforcement agency, including this state's Board ofPharmacy, in the investigation of any possible misuse, sale, or otherdiversion of my medication.I authorize my doctor to provide a copy of this Agreement to my pharmacy.I agree to waive any applicable privilege or right of privacy orconfidentiality with respect to these authorizations.I agree that I will use my medicine at a rate no greater than the prescribedrate and that use of my medicine at a greater rate may result in my beingwithout medication for a period of time.If legal authorities have questions concerning treatment, for example, if apatient were obtaining medications at several pharmacies, all confidentialityis waived and the authorities may be given full access to the [facility] Records of narcotic administration.I agree to follow these guidelines and they have been fully explained to me.All of my questions and concerns regarding treatment have been answered. Acopy of this document has been given to me. Pharmacy: Location: ___ Phone number: Patient: Date: September 15, 2016 Riki Mckeon [id number]: Date: September 15, 2016 Bea Pugh MDInformation regarding Controlled Substance Prescriptions:Please read carefully.Strong pain medications such as Tramadol, Narcotic analgesics are helpful tocontrol a severe pain when it is difficult to control with simple painmedications, but they can cause problems if taken for too long.The goal of treatment is to control the pain to a level where you will beable to function.The long-term use of such substances as opioids ( narcotic analgesics),benzodiazepine tranquilizers, and barbiturate sedatives is controversialbecause of uncertainty regarding the extent to which they actually improvethe lives of those receiving them in long term care pharmacist use. Some people receiveprolonged benefit and others do not. Some may actually have an increase inpain. There is also the risk of developing addiction or causing relapse ofaddiction.It is important that you know the side effects of these medicationsincluding: Excessive doses suppress breathing and may be fatal. This is especially trueif the person is a child.Drowsiness and impaired concentration may create danger with driving oroperating machinery, especially shortly after dose increases. Some peopledescribe lasting feelings of reduced alertness and concentration.Toxicity is much more likely if the drug is combined with tranquilizers orsedatives, so the user must never do thisConstipation is most common. Stool softeners or other agents are thenrequired.If these drugs are taken regularly during the latter months of , thechild will probably be born physically dependent on them.Many deaths have occurred because of abuse of these medications, often bypeople other than those for whom they were prescribed, or because ofcombining them with other substances. Therefore, strict accountability isnecessary. The following policies are agreed to by the treatment recipient.Selling or giving away this medication is against the law and may cause harmor to the person who receives it. Thus you must never give controlledsubstances to anyone else, even if he or she has the same symptoms as you.It is equally important that you secure your medications so that no one elsecan access them. Workers in the home, friends of children, and visitors canbe expected to look through medicine cabinets and take drugs of abuse.Medications should not be left in sight in hotel rooms, unoccupied cars, etc.Should a child accidentally ingest one of your pills, obtain emergencymedical care immediately.A good rule of thumb is not to put the medication any place you would notleave $1000 in viera. A small, inexpensive safe or lockable cabinet is a goodidea.Because diverted / stolen opioids are causing an epidemic of deaths in [place], lost or stolen medications will not be replaced. It is yourresponsibility to safeguard them.In addition [place] law requires certain procedures for the prescription ofcontrolled substances which will be discussed. Status:Closed by BEA PUGH MD on 09/15/16 ALLERGIES ALLERGIES DATE TYPE / CODE NAME / REACTION SEVERITY SOURCE CODE 06/26/2014 Miscellaneous CATS Unknown Unknown [place] Allergy/[id number]([facility]) Hospital Repository 03/04/2013 Animal/[id number]([facility] OTHER: SEE C [facility]) [facility] Repository ENCOUNTERS ENCOUNTERS ADMIT/DISCHARGE ACCOUNT NUMBER ADMITTING ENCOUNTER LOCATION SOURCE CLASS 08/09/2017 [id number] Emergency [facility] ding:ED Repository 06/02/2017/06/06/19 [id number] Ambulatory [address] Repository 03/15/2017/03/15/19 [id number] Emergency BBuilding:JOSSE [place] [address] [facility] [place] Repository 09/15/2016 [id number] Ambulatory [facility] Repository 09/15/2016/09/17/19 [id number] Ambulatory [address] Repository PAYERS PAYERS ENCOUNTER GUARANTOR PAYER SUBSCRIBER SOURCE 08/09/2017 RIKI A Primary RIKI A [place] [id number] [place] Insurance:CARESOURCEP MOTICHDOB: [facility] Number: [id number] [address]Cni: 330 [id number] Repository [phone] () Date:2017-08-09 [address]ATTN: [place] [address]DZ: 08/09/2017 Secondary NOT GIVENUNK [place] Insurance:SELF PAY [facility] Number: Effective Repository Date:2017-08-09 03/15/2017 RIKI A Primary [place] [facility] MOTICHDOB: Insurance:CARESOURCE MOTICHDOB: [facility] [id number] MEDICAIDPolicy [id number] Repository [place] Number: [address] [place], [place] [id number] [id number] Date:2017-03-15 [id number]: ([email or web address]) MAIL.COMTel: [phone] Name:[address] ()Tel: 000) [phone], [place] [phone] () [address]UG:
[2017-08-09 08:25] LABS: ALB/GLOB Ratio 1.1 RATIO (0.9-2.4); AST(SGOT) 19 U/L (15-37); Alanine Aminotransfer ALT/SGPT 28 U/L (16-61); Albumin, Serum 3.7 g/dL (3.2-5.0); Alkaline Phosphatase 65 U/L (45-117); Anion Gap 8 (5-15); BUN 21 mg/dL (7-18); BUN/Creat Ratio 26.6 RATIO (10-20); Calcium,Total 8.4 mg/dL (8.5-10.1); Chloride 108 mmol/L (98-107); Creatinine, Serum 0.79 mg/dL (0.70-1.30); EST Glomerular Filtration Rate 120 mL/min (>60); Est Glom Filt Rate - Afr Amer 145 mL/min (>60); Estimated Creatinine Clearance 157.47 ml/min; Globulin 3.3 g/dL (2.2-4.2); Glucose 92 mg/dL (74-106); Sodium Level 143 mmol/L (136-145)
--- NOTE | 2017-08-09 08:27 | ED.DCSUM_ITS ---
- ER Visit Summary Date of Service: 08/09/17 Chief Complaint: Amnesia History of Present Illness: The patient is a 32 M [place] He has no recollection of how he got there. He states he does remember smoking some marijuana last night. He is homeless and is been in the area off and on for several years. He denies any pain. He denies any other symptoms. He states that he is tired. Physical Examination: Afebrile vital signs are stable Gen: Well-nourished well-developed Head: Normocephalic atraumatic Eyes: Perrl EOMI ENT: TMs clear no rhinorrhea moist mucous membranes Neck: Supple no lymphadenopathy no JVD nontender CVS: Regular rate rhythm no murmurs normal S1-S2 Respiratory: No distress clear to auscultation bilaterally chest nontender Abdomen: Soft nontender nondistended normal bowel sounds no masses Back: Nontender Extremity: Nontender no edema Skin: Normal color no rash Neuro: alert orientated ?3 CN II-XII intact normal strength sensation reflexes gait cerebellar patient does seem tired and falls asleep easily Psych: Normal affect normal mood Test Results: CT the brain is negative. CBC chemistries liver normal. Alcohol negative. Calcium noted to be 8.4. Urine drugs abuse is positive for THC and amphetamines Emergency Department Course and Treatment: Patient will be discharged from the emergency room. He was advised to abstain from drug use as this is the most likely etiology for his amnesia to last night's events. He may follow-up with primary care. Impression: 1. Amnesia 2. Polysubstance drug abuse This note was generated with [employer] dictation software. It may contain incorrect words, spelling, and punctuation that were not noted in review of the chart prior to signing ED Disposition - Plan for ED Patient: Disposition: Home or Assisted Living Chief Complaint: Mental Status Change Instructions: ED Drug Abuse General Referrals: Vamsi Hammer MD [Primary Care Provider] - As soon as possible
[2017-08-09 08:55] VITALS: BP 145/90; PULSE 58; RESP 17; O2SAT 97
[2017-08-09 09:05] LABS: Amphetamine Urine VISTA POSITIVE (<1000 ng/mL); Barbiturate Urine VISTA NEGATIVE (< 200 ng/mL); Benzodiazepine Urine VISTA NEGATIVE (< 200 ng/mL); Cocaine Urine VISTA NEGATIVE (< 300 ng/mL); Ecstacy Urine VISTA NEGATIVE (< 500 ng/mL); Methadone Urine VISTA NEGATIVE (< 300 ng/mL); PCP Urine VISTA NEGATIVE (< 25 ng/mL); THC Urine VISTA POSITIVE (< 50 ng/mL); Vista UDS pH Range 6
--- NOTE | 2017-08-09 09:32 | CASEMGMT ---
Social Work Note Referral from Dr. Wagner that pt is homeless. Will be discharged from ED shortly. Face to face with the pt to complete initial assessment. Introduced self and role at [facility]. Pt is well kempt and falling in and out of sleep throughout assessment. Makes minimal eye contact with this sql report writer throughout conversation and seems unconcerned with his situation as evidenced by poor engagement and stating I have it handled. The pt reports that he lives here and there. Stays with family and friends sporadically. Claims that he is homeless in that he does not have stable housing, but that he has been staying with friends/family and has a roof over his head. States he does have a friend he can contact to stay with at discharge from [facility]. Pt does report a hx of anxiety and depression. He does not see a counselor or psychiatrist. States his mental health diagnoses are managed by his PCP. Reports alcohol, tobacco and marijuana use. Denies interest in seeking treatment. Educated to community resources for mental health diagnoses and substance abuse and provided materials. Pt states that he has been to [facility] within the past year and is not eligible to return at this time. Educate to shelters in other counties and pt politely declines at this time. Pt made aware that SW is available. Plan: D/C to friends home. Irma Mclaughlin, MANAGER DRIVE, EDGE STAINER MACHINE
[2017-08-09 09:34] VITALS: BP 125/51; PULSE 53; RESP 16; O2SAT 99
== END 2017-08-09 09:34 | disposition home or self-care (01) ==
PROVIDERS: Emergency Provider Emergency Medicine; PCP Family Medicine
DX: F32.9 Major depressive disorder, single episode, unspecified (principal); F19.10 Other psychoactive substance abuse, uncomplicated; Z59.0 Homelessness; Z79.899 Other long term (current) drug therapy
CPT/HCPCS: 70450; 80053; 80307; 80320; 85025; 99285; G0480

== ENCOUNTER 2017-12-30 15:09 | Emergency (ER) | payer MEDICAID, SELFPAY ==
[2017-12-30 15:12] VITALS: BP 150/94; PULSE 89; RESP 19; TEMP 36.9; O2SAT 100; BMI 31.2
--- NOTE | 2017-12-30 15:32 | CT_ITS ---
STUDY: CT ABDOMEN AND PELVIS WITH CONTRAST REASON FOR EXAM: Male, 32 years old. Nausea vomiting. RADIATION DOSAGE (If Supplied By Facility): CTDIvol = ( 14.45 ) mGy, DLP = ( 1046.23 ) mGycm TECHNIQUE: Transaxial images were obtained from the dome of the diaphragm to the symphysis pubis without oral contrast. 100 ml of Isovue 300 contrast was administered. Sagittal and coronal images were reconstructed. Individualized dose optimization techniques were used for this CT. COMPARISON: None. FINDINGS: The visualized lung bases are unremarkable. The visualized portions of the heart are within normal limits. Normal liver. Normal gallbladder and extrahepatic biliary system. Normal spleen. Normal pancreas. Normal bilateral adrenal glands. Normal right kidney. Normal left kidney. There is marked distention of the stomach. There are marked distended loops of small bowel with air-fluid levels measuring up to 4 to 5 mm. There is lesser caliber partially fluid-filled loops of large bowel. Is a tortuous decompressed appearance of the distal small bowel. The appendix is visualized and appears normal. Normal abdominal aorta. Normal inferior vena cava. Normal retroperitoneum. Normal urinary bladder. Normal visualized prostate gland. There is a right-sided inguinal hernia containing adipose tissue. There are diffuse degenerative changes of the visualized lumbar spine. CT/Abdomen/Pelvis WITH Contrast IMPRESSION: Findings are suspicious for small bowel obstruction which is centered in the right lower quadrant. There is marked distention of the stomach and small bowel in a decompressed appearance of the distal small bowel. Overdistended stomach recommend NG tube placement. No evidence of appendicitis. N.B. : The above information has been verbally conveyed by Karen Maria MD to Dr. Madhu Noonan MD, on 12/30/2017 17:53:59 (ET). Electronically Signed: Karen Maria MD at 17:51 EST Tel , Service support ,
--- NOTE | 2017-12-30 15:36 | ED.VISSUMM ---
- ER Visit Summary Date of Service: 12/30/17 Chief Complaint: Abdominal pain History of Present Illness: The patient is a 32 M presenting for evaluation secondary to abdominal pain. Patient reports that at about 1 AM he had a sudden onset of abdominal pain. He reports that it is a diffuse pain that is continuous worse with any sort of palpation or movement. He reports that is been associated with profuse diarrhea, up to 12 episodes of nonbloody non-mucousy diarrhea. Patient states that it has been associated with 2 episodes of nonbloody nonbilious emesis. He denies any presence of fevers. Patient denies any history of abdominal surgeries in the past. Patient states the pain feels like something is stuck. Review of systems otherwise negative. Physical Examination: Vital signs are within normal limits, patient is afebrile. General: Patient is well-nourished well-developed and in no acute distress, but somewhat listless. Head: Normocephalic, atraumatic Eyes: Pupils equal round and reactive bilaterally, extra occular motion intact bialterally ENT: Moist mucous membranes Neck: Supple, no lymphadenopathy, no JVD, no meningismus CVS: Heart regular rate and rhythm, no murmurs, rubs or gallops, radial pulses 2+ bilaterally Resp: Respirations nondistressed, lung sounds clear bilaterally Abdomen: Diffusely tender with guarding on palpation and reports of rebound tenderness. No localization, normal bowel sounds Back: Nontender Extremities: Nontender, atraumatic, active full range of motion, no peripheral edema Skin: warm, no rashes, no petechia Neuro: Alert and oriented x 4, CN 2-12 intact, no lateralizing neurological defecits Psyc: Normal affect Test Results: CBC demonstrates a normal white blood cell count with a neutrophilic predominance at 86%. Chemistry is normal including liver panel and lipase are within normal limits. CT abdomen and pelvis with IV contrast demonstrates evidence of a high-grade bowel obstruction with transition point in the right lower quadrant and potential inflammatory bowel disease Emergency Department Course and Treatment: Patient presented for evaluation secondary to abdominal pain. He had a concerning abdominal exam with some ridgidity so IV was established she was given medications laboratory studies were obtained as were imaging. CT ended up showing the patient to have a high-grade bowel obstruction. I ordered the patient to have Afrin, aerosolized lidocaine, and an NG was placed with immediate return of 500 cc of fluid. Patient did have some improvement. I discussed patient's case with Dr. Pérez, surgery. After evaluating the patient and reviewing the CT scan he feels that this potentially could be secondary to an onset of Crohn's disease and feels the patient not appropriate to be admitted to this facility. Patient requested transfer to [facility]. Accepting physician was obtained, the patient was transferred by squad. Disposition: Transfer Impression: 1. High-grade bowel obstruction with possible inflammatory bowel disease This note was generated with [employer] dictation software. It may contain incorrect words, spelling, and punctuation that were not noted in review of the chart prior to signing ED Disposition - Plan for ED Patient: Disposition: [facility] Chief Complaint: Nausea/Vomiting/Diarrhea Referrals: Vamsi Hammer MD [NON-STAFF] -
[2017-12-30] MEDS: 0.9% Normal Saline 1,000 ML 1000 ML IV (15:46)
[2017-12-30] MEDS: Ketorolac 30 MG/ML Syringe 15 MG IV (15:46)
[2017-12-30] MEDS: Ondansetron 4 MG/2 ML Vial IV (15:46)
[2017-12-30 15:58] LABS: Absolute Lymphocyte Count 0.57 X10^3/ul (0.83-4.51); Absolute Neutrophil Count 7.9 X10^3/uL (2.0-7.7); Basophil# 0.01 X10^3/uL; Basophil% 0.1 % (0-1); Eosinophil# 0.04 X10^3/uL; Eosinophils% 0.4 % (0-5); Hematocrit 43.5 % (40-54); Hemoglobin 14.9 g/dl (13.0-16.5); Lymphocyte # 0.57 X10^3/ul (4.0); Lymphocyte % 6.3 % (19-41); Mean Corp Hgb Conc 34.3 g/gl (32-36); Mean Corpuscular Hgb 31.4 pg (27.0-32.0); Mean Corpuscular Volume 91.6 fL (80-94); Mean Platelet Vol. 9.5 fl (6.2-12.0); Monocyte# 0.58 X10^3/uL; Monocyte% 6.4 % (0-10); Neutrophil # 7.91 X10^3/uL (2.7-7.7); Neutrophil % 86.7 % (47-70); Platelet Count 300 K/mm3 (150-450); RBC Distribution Width CV 12.7 % (11.6-14.6); RBC Distribution Width SD 42.2 fl (35.1-43.9); Red Blood Count 4.75 M/mm3 (4.6-6.2); White Blood Count 9.1 K/mm3 (4.4-11.0)
[2017-12-30 16:00] LABS: Differential Indicated SCAN CRITERIA MET; POSITIVE COUNT NO; POSITIVE DIFFERENTIAL YES; POSITIVE MORPHOLOGY NO
[2017-12-30 16:07] LABS: ALB/GLOB Ratio 1.1 RATIO (0.9-2.4); AST(SGOT) 5 U/L (15-37); Alanine Aminotransfer ALT/SGPT 24 U/L (16-61); Alkaline Phosphatase 76 U/L (45-117); Anion Gap 7 (5-15); BUN 16 mg/dL (7-18); BUN/Creat Ratio 17.7 RATIO (10-20); Calcium,Total 9.4 mg/dL (8.5-10.1); Chloride 102 mmol/L (98-107); EST Glomerular Filtration Rate 102 mL/min (>60); Est Glom Filt Rate - Afr Amer 124 mL/min (>60); Estimated Creatinine Clearance 138.23 ml/min; Globulin 3.5 g/dL (2.2-4.2); Glucose 112 mg/dL (74-106); Lipase 88 U/L (73-393); Potassium 3.8 mmol/L (3.5-5.1); Protein, Total 7.5 g/dL (6.4-8.2); Sodium Level 138 mmol/L (136-145)
[2017-12-30 16:45] LABS: Differential Comment SCANNED
[2017-12-30 17:38] VITALS: BP 161/93; PULSE 81; RESP 16; O2SAT 100
[2017-12-30] MEDS: Morphine 4 MG/ML Syringe IV (17:48)
--- NOTE | 2017-12-30 17:54 | RAD_ITS ---
STUDY: X-RAY - ABDOMEN/PELVIS REASON FOR EXAM: Male, 32 years old. Nasogastric tube placement TECHNIQUE: Single AP view of the abdomen / pelvis. COMPARISON: None. FINDINGS: The lung bases are not in the [id number] of this study. A nasogastric tube is present with the tip superimposed on the mid gastric body. There is mild gaseous distention of the stomach, several loops of small bowel, and proximal colon. There is no demonstrated free abdominal air. The pelvicalyceal systems and bladder are opacified with intravenous contrast. Normal soft tissue structures. Normal visualized osseous structures. RAD/Abdomen Single View (Portable) IMPRESSION: Nasogastric tube present with tip superimposed on the gastric body. Gaseous distention of the stomach, several loops of small bowel, and proximal colon. Electronically Signed: Kuldeep Gonsalves MD at 19:32 EST , Service support ,
[2017-12-30] MEDS: Lidocaine 4% 5 ML Ampul 2 ML INHALATION (18:12)
[2017-12-30 18:18] VITALS: PULSE 84; RESP 16
[2017-12-30] MEDS: Oxymetazoline 0.05% 1 SPRAY SPRAY.BTL NASAL (19:00)
[2017-12-30 19:04] VITALS: RESP 14
--- NOTE | 2017-12-30 20:02 | ED.RN ---
PT REMOVED NG.
--- NOTE | 2017-12-30 20:38 | ED.RN ---
2 ATTEMPTS TO CALL REPORT TO [facility]. ON HOLD FOR OVER 10 MINUTES, STILL NO REPORT GIVEN.
[2017-12-30 20:41] VITALS: BP 177/85; PULSE 94; RESP 14; O2SAT 100
--- NOTE | 2017-12-30 20:47 | ED.RN ---
REPORT GIVEN TO JORDAN LEACH AFTER 3RD ATTEMPT.
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
== END 2017-12-30 21:07 | disposition short-term general hospital (02) ==
PROVIDERS: Emergency Provider Emergency Medicine
DX: K56.609 Unspecified intestinal obstruction, unspecified as to partial versus complete obstruction (principal); Z72.0 Tobacco use
CPT/HCPCS: 74018; 74177; 80053; 83630; 83690; 85025; 87506; 94640; 96361; 96374; 96375; 99285; J7030; Q9967; A4216; J2405

== ENCOUNTER 2018-05-14 06:18 | Emergency (ER) | payer MEDICAID, SELFPAY ==
[2018-05-14 06:18] VITALS: BP 135/104; PULSE 89; RESP 22; TEMP 36.7; O2SAT 99; BMI 25.1
[2018-05-14 06:21] VITALS: BP 135/104; PULSE 89; RESP 22; TEMP 36.7; O2SAT 99
--- NOTE | 2018-05-14 06:24 | EKG12_ITS ---
Test Reason : CP Blood Pressure : / mmHG Vent. Rate : 083 BPM Atrial Rate : 083 BPM P-R Int : 166 ms QRS Dur : 090 ms QT Int : 378 ms P-R-T Axes : 018 050 051 degrees QTc Int : 444 ms Normal sinus rhythm with sinus arrhythmia Normal ECG Confirmed by PARUL GAMEZ, DECLAN ([id number]), food editor LALITA CADENA ([id number]) on 05/16/2018 1:33:56 PM Referred By: DAVID Confirmed By:DECLAN TERAN MD
--- NOTE | 2018-05-14 06:24 | RAD_ITS ---
STUDY: X-RAY CHEST REASON FOR EXAM: Male, 32 years old. Chest pain for 3 days. TECHNIQUE: Single AP portable view of the chest. COMPARISON: None. FINDINGS: The lungs are clear and expanded. There is no demonstrated pleural abnormality. Normal size heart. Normal mediastinum and meseret. Normal visualized pulmonary arteries. Normal visualized aortic arch and descending thoracic aorta. Normal visualized thoracic spine. Normal visualized ribs, clavicles, and shoulders. There is no demonstrated abnormality of the visualized soft tissue structures of the upper abdomen. RAD/Chest 1 View (Portable) IMPRESSION: Normal x-ray examination of the chest. Electronically Signed: Cristi Hernández MD at 7:22 EDT , Service support ,
--- NOTE | 2018-05-14 06:38 | ED.VIS.GEN ---
History of Present Illness Chief Complaint: Chest Pain Narrative: Stated for the last 3 days he has had left-sided dull chest pain. Is been constant and mild in nature. No home treatment. No associated symptoms. No shortness of breath. No cardiac PE or dissection risk factors except he does smoke cigarettes. Current severity is mild. He is never had this before. He is never had any heart problems in the past. Denies illegal drug use. Also stated for the last week has had a pimple on his right inner nares. He does not sure if this is related but it is been hurting. He has had remote cellulitis. He has had some mild drainage. He did pop it open. Past Medical History - Allergies and Home Meds Allergies/Adverse Reactions: Allergies CATS Allergy (Uncoded 05/14/18 06:21) Unknown Primary Care Physician: Care Physician,No Primary [Primary Care Provider] - Prior records reviewed: Yes Past Medical History: - - Colitis Surgical History: no surgical history, noncontributory Lives: With Family Smoking Status: Current every day smoker Alcohol: None Drugs: None Review of Systems General: Denies: Chills, Fever, Sweats Eyes: Denies: Visual changes - bilaterally, Diplopia ENT: Denies: Rhinorrhea, Sore throat Cardiovascular: Reports: Chest pain. Denies: Palpitations Respiratory: Denies: Dyspnea, Cough, Dyspnea on exertion Gastrointestinal: Denies: Abdominal pain, Nausea, Vomiting, Diarrhea, Melena, Hematochezia Genitourinary: Denies: Dysuria, Hematuria, Frequency Musculoskeletal: Denies: Back pain, Extremity Pain Skin: Denies: Rash, Wounds Neurological: Denies: Headache, Weakness, Numbness Physical Exam Vital Signs/Narrative: Vital Signs Temp Pulse Resp BP Pulse Ox 05/14/18 06:21 98.0 F 89 22 H 135/104 H 99 05/14/18 06:18 98.0 F 89 22 H 135/104 H 99 General: Well nourished, Well developed, No Acute Distress Head: Normocephalic, Atraumatic Eyes: Perrl, EOMI ENT: Moist mucous membranes, No rhinorrhea Neck: Supple, Nontender Cardiovascular: Regular rate, Regular rhythm, No murmurs Respiratory: No distress, CTA bilaterally, Chest nontender Abdomen: Soft, Nontender, Nondistended, Normal bowel sounds Back: Nontender, Normal Inspection Extremities: Nontender, No edema Skin: Normal color, No rash, - - She is right in her nares has a small pustule. It has crustiness. No cellulitis. No swelling. No abscess. Neurological: Alert, Oriented x3, Cranial nerves II-XII grossly intact, Normal Strength, Normal Sensation Psychological: Normal affect, Normal Mood Diagnostic/Tx/Re-eval - EKG Initial EKG Interpretation: Sinus Rhythm - Sinus rhythm at 83 without acute ischemia. Sinus arrhythmia - Medical Decision Making Given Motrin. Lab work and chest x-ray obtained. Lab work is unremarkable troponin negative chest x-ray normal. Patient will be given a prescription for Bactroban and Bactrim for his nasal infection. He will use ibuprofen for spastic costochondritis. I do not feel that cardiac PE or dissection. He has no risk factors other than smoking. We will follow-up as an outpatient. ED Disposition - Plan for ED Patient: Disposition: [facility] Diagnosis: Skin pustule, Chest pain Instructions: ED Chest Pain NonCardiac Prescriptions: Smz/Tmp Ds [Bactrim Ds] 1 tab PO BID #14 tab Mupirocin [Bactroban] 1 applic TOPICAL TID #1 tube Referrals: Bill Ball DO [NON CLINICAL AFFILIATE] -
[2018-05-14 06:39] LABS: Absolute Lymphocyte Count 1.88 X10^3/ul (0.83-4.51); Absolute Neutrophil Count 6.1 X10^3/uL (2.0-7.7); Basophil# 0.05 X10^3/uL; Basophil% 0.6 % (0-1); Eosinophil# 0.22 X10^3/uL; Eosinophils% 2.5 % (0-5); Hematocrit 39.5 % (40-54); Hemoglobin 12.9 g/dl (13.0-16.5); Lymphocyte # 1.88 X10^3/ul (4.0); Lymphocyte % 21.1 % (19-41); Mean Corp Hgb Conc 32.7 g/gl (32-36); Mean Corpuscular Hgb 30.2 pg (27.0-32.0); Mean Corpuscular Volume 92.5 fL (80-94); Mean Platelet Vol. 9.8 fl (6.2-12.0); Monocyte# 0.66 X10^3/uL; Monocyte% 7.4 % (0-10); Neutrophil % 68.3 % (47-70); Platelet Count 218 K/mm3 (150-450); RBC Distribution Width CV 12.3 % (11.6-14.6); RBC Distribution Width SD 40.7 fl (35.1-43.9); Red Blood Count 4.27 M/mm3 (4.6-6.2); White Blood Count 8.9 K/mm3 (4.4-11.0)
[2018-05-14 06:44] LABS: POSITIVE COUNT NO; POSITIVE DIFFERENTIAL NO; POSITIVE MORPHOLOGY NO
[2018-05-14 06:51] LABS: Anion Gap 6 (5-15); BUN 25 mg/dL (7-18); BUN/Creat Ratio 35.3 RATIO (10-20); Calcium,Total 8.3 mg/dL (8.5-10.1); Chloride 110 mmol/L (98-107); Creatinine, Serum 0.71 mg/dL (0.70-1.30); EST Glomerular Filtration Rate 135 mL/min (>60); Est Glom Filt Rate - Afr Amer 163 mL/min (>60); Estimated Creatinine Clearance 175.22 ml/min; Glucose 94 mg/dL (74-106); Potassium 3.9 mmol/L (3.5-5.1); Sodium Level 142 mmol/L (136-145)
[2018-05-14] MEDS: Ibuprofen 600 MG Tablet PO (06:55)
[2018-05-14 07:31] VITALS: BP 120/78; PULSE 82; RESP 13; O2SAT 98
== END 2018-05-14 07:32 ==
PROVIDERS: Emergency Provider Emergency Medicine
DX: R07.9 Chest pain, unspecified (principal); L08.9 Local infection of the skin and subcutaneous tissue, unspecified; F17.210 Nicotine dependence, cigarettes, uncomplicated
CPT/HCPCS: 71045; 80048; 84484; 85025; 93005; 99285; A4216

== ENCOUNTER → 2023-11-14 | Outpatient (CLI) | payer MEDICARE, MEDICAID, SELFPAY | END | disposition home or self-care (01) | PROVIDERS: PCP Family Medicine; Referring Provider Family Medicine; Visit Provider Family Medicine | DX: G47.10 Hypersomnia, unspecified (principal) | CPT/HCPCS: 95810 ==